=== PATIENT | male | born 1955 | race Caucasian/White ===

== ENCOUNTER 2020-03-03 15:39 | Emergency (ER) | payer OTHER ==
[~2020-03-03] VITALS: Ht 185.4 cm; Wt 90.9 kg
[2020-03-03 15:44] VITALS: TEMP 98.1
[2020-03-03 16:35] VITALS: BP 141/87; PULSE 73
== END 2020-03-03 16:34 | disposition home or self-care (01) ==
LOC: COL.ER 15:39
DX: S61.211A Laceration without foreign body of left index finger without damage to nail, initial encounter (principal); Z88.0 Allergy status to penicillin; W26.0XXA Contact with knife, initial encounter